=== PATIENT | male | born 1995 | race Asian ===

== ENCOUNTER 2017-01-09 13:40 | Emergency (ER) | payer BC ==
--- NOTE | 2017-01-09 14:21 | EDPHY ---
H & P Stated Complaint: 2 weeks infection/swelling drainage l nipple Time Seen by Provider: 01/09/17 14:13 HPI/ROS: CHIEF COMPLAINT: Left chest skin infection HISTORY OF PRESENT ILLNESS: The patient is a 21 y/o male complaining of a left-sided nipple infection on his chest for the past 2 weeks. A week ago he had a subjective low-grade fever, but has not had one since. The infection has been draining. Denies a bite or recent piercing. No chills, chest pain, shortness of breath, palpitations, vomiting, diarrhea, urinary complaints, headache, lightheadedness. His friend at the bedside helped to translate. REVIEW OF SYSTEMS: Aside from elements discussed in the HPI, a comprehensive 10-point review of systems was reviewed and is negative. PAST MEDICAL HISTORY: Denies SOCIAL HISTORY: Friend at bedside, lives in [place] VITAL SIGNS: Reviewed by me and are normal GENERAL: Well-developed, well-nourished, resting comfortably in no respiratory distress. HEENT: Benign. LUNGS: Clear to auscultation bilaterally, no wheezes, rhonchi or rales. CHEST: Left nipple and areola included in a 2cm x 4cm abscess with surrounding cellulitis. Small area of drainage. CARDIAC: Regular rate and rhythm, no rubs, murmurs or gallops. ABDOMEN: Benign. NEURO: Alert and oriented, grossly nonfocal. SKIN: . Warm and dry, no rash. PSYCHIATRIC: Normal mentation, no agitation. Portions of this note were transcribed by a medical secretary teacher. I personally performed a history, physical exam, medical decision making, and confirmed accuracy of information the transcribed note. - Personal History Current Tetanus/Diphtheria Vaccine: Yes - Medical/Surgical History Hx Asthma: No Hx Chronic Respiratory Disease: No Hx Diabetes: No Hx Cardiac Disease: No Hx Renal Disease: No Hx Cirrhosis: No Hx Alcoholism: No Hx HIV/AIDS: No Hx Splenectomy or Spleen Trauma: No Other PMH: denies - Social History Smoking Status: Current every day smoker Constitutional: Initial Vital Signs Temperature (C) 37.2 C 01/09/17 13:47 Heart Rate 72 01/09/17 13:47 Respiratory Rate 17 01/09/17 13:47 O2 Sat (%) 97 01/09/17 13:47 O2 Delivery Mode Room Air Allergies/Adverse Reactions: No Known Allergies Allergy (Unverified 01/09/17 13:46) Home Medications: Medication Instructions Recorded Cephalexin [Keflex (RX)] 500 mg PO QID 7 Days cap 01/09/17 Sulfamethox/Tmp 800/160 mg 1 tab PO BID #14 tab 01/09/17 [Bactrim Ds] Medical Decision Making - Diagnostics Imaging Results: Impression: 1. Equivocal subcentimeter fluid collection/abscess deep to the nipple. Clinical follow-up is recommended with ultrasound follow-up as clinically warranted. BI-RADS 2: Benign findings. 2. Probable gynecomastia. Findings discussed with Bernice Priest MD on January 09, 2017 at 1531 hours. Dictated By: Jose Jacobo MD Imaging: Discussed imaging studies w/ print finishing worker Radiologist, I viewed and interpreted images myself ED Course/Re-evaluation: The patient is a 21 y/o male presenting with a 2cm x 4cm abscess that includes the nipple and areola. There is surrounding cellulitis and one area that is draining. 1448: Consulted with Dr. Jensen, general surgeon, he believes the patient should have surgery for his abscess. 1513: Reassessed patient and discussed plan for Dr. Jensen to consult for a possible surgery. 1519: Spoke with radiologist, he reports the breast ultrasounds shows a fluid collection and abscess deep to the left nipple 1528: Consulted with Dr. Jensen, he reports the patient does not want to have surgery. He recommends the patient be placed on Bactrim for cellulitis as well as have an outpatient follow up visit. Reassessed patient and collected a culture of the fluid draining from his abscess. He will be placed on Keflex and Bactrim. Return precautions provided; patient is comfortable with this plan. Differential Diagnosis: Diff dx considered included cellulitis, abscess, malignancy, trauma. Departure - Departure Disposition: Home, Routine, Self-Care Clinical Impression: Abscess Cellulitis Qualifiers: Site of cellulitis: trunk Site of cellulitis of trunk: chest wall Qualified Code(s): L03.313 - Cellulitis of chest wall Condition: Good Instructions: Cellulitis (ED) Additional Instructions: 1. Take Bactrim and Keflex as prescribed. 2. Schedule a follow up appointment with Dr. Jensen, general surgeon. 3. Return to the Emergency Department for fever, redness, discharge from wound, increasing pain or other worsening of condition. 4. I recommend Ibuprofen (Motrin,Advil) or Naproxen Sodium (Aleve) for pain and anti-inflammatory effects. You may take either one, but do not take both. Your dose is: Ibuprofen 600mg every 6-8 hours with food. OR Naproxen Sodium (Aleve) 220mg every 12 hours. Referrals: Carlos Jensen MD [Medical Doctor] - As per Instructions Prescriptions: Cephalexin [Keflex (RX)] 500 mg PO QID 7 Days cap Sulfamethox/Tmp 800/160 mg [Bactrim Ds] 1 tab PO BID #14 tab Report Scribed for: Bernice Priest Report Scribed by: Karly Champion Date of Report: 01/09/17 Time of Report: 14:20
[2017-01-09 15:54] VITALS: BP 116/77; PULSE 77; RESP 15; TEMP 98.2; O2SAT 96
--- NOTE | 2017-01-23 23:14 | GCON ---
[f rep st] CONSULTATION ER CONSULTATION DATE OF CONSULTATION: 01/09/2017 Patient is a 21-year-old male from [place], who speaks very little [place], came to the emergency room because of pain and drainage from his left nipple and breast. He has had this ongoing infection for over 2 weeks. He has been on antibiotics and has failed to improve. He was seen in consultation in the emergency room for this problem. He has had no history of trauma to the area. He has had no pre vious surgery on this. No nipple piercing's or other difficulties. PAST MEDICAL HISTORY: Negative for any major surgeries, hospitalizations, or serious. FAMILY HISTORY: Noncontributory. REVIEW OF SYSTEMS: Negative for a full 10-point review of systems, specifically he does not smoke. He is a student from [place]. PHYSICAL EXAMINATION: GENERAL: Reveals an alert 21-year-old male in no acute distress. He is afebr ile. HEAD/NECK: Reveals no icterus or adenopathy or oral lesions. CHEST: Clear. CARDIAC: Regula r rhythm. ABDOMEN: Soft and nontender. EXTREMITIES: Benign, full pulses. BREAST EXAM: Reveals a fluctuant, tender, erythematous area in the subareolar position of the left breast with some intermi ttent purulent drainage. IMPRESSION: A left nipple and breast abscess. RECOMMENDATIONS: Would be admission for I and D, however, the patient has refused any surgical treat ment and wishes to try to return to [place]. I have instructed him through his healthcare management that would be unwise, and he will need this drained at some point. I have recommended for him to continue the a ntibiotics. However, he still refused any surgical option. /[id number]/MODL
== END 2017-01-09 15:53 | disposition home or self-care (01) ==
DX: L03.313 Cellulitis of chest wall (principal); N61.1 Abscess of the breast and nipple; F17.200 Nicotine dependence, unspecified, uncomplicated